=== PATIENT | female | born 1985 | race Caucasian/White ===

== ENCOUNTER 2019-01-05 17:35 | Outpatient (CLI) | payer OTHER, BC ==
--- NOTE | 2019-01-05 21:52 | Ultrasound Report ---
Reason: POSITIVE TEST Procedure Date: 01/05/2019 Accession Number: [id number] / [id number] Procedure: US - OB First Trimester CPT Code: Final Report FULL RESULT: EXAM: FIRST TRIMESTER OBSTETRIC ULTRASOUND (Less than 11 weeks) EXAM DATE: 01/05/2019 06:30 PM. CLINICAL HISTORY: Positive test. LMP: 10/28/2018, EGA 10 weeks 0 days, CLAIRE 08/03/2019. COMPARISONS: None. TECHNIQUE: Transabdominal and transvaginal ultrasound examination with static image documentation. ASSESSMENT: Gestational Sac: Single intrauterine. Mean gestational sac diameter: 2.3 mm = 7 weeks 2 days. Embryo: CRL (crown-rump length) 6 mm = 6 weeks 3 days, CLAIRE 08/28/2019. Cardiac activity: None. No cardiac activity is seen. Yolk sac: Appears enlarged measuring 9 mm. Amniotic fluid: Not accurately assessed at this gestational age. Early placenta: Not visible at this gestational age. Other: No perigestational fluid collection demonstrated. MATERNAL STRUCTURES: Uterus: Anteverted. Posterior transmural uterine fibroid versus contraction measuring 3.4 x 3.1 x 3 cm. Cervix: Closed. Right Ovary/Adnexa: The ovary measures 2.3 x 1.2 x 2 cm, volume 2.9 cc. Unremarkable. Left Ovary/Adnexa: The ovary measures 3.6 x 2.1 x 2 cm, volume 7.9 cc. Unremarkable. Corpus luteum suspected in the left ovary measuring 1.6 x 1.5 x 2 cm. Blood flow is seen in the left ovary. Free Fluid: None. IMPRESSION: 1. Single intrauterine at EGA 6 weeks 3 days with CLAIRE 08/28/2019 based on crown-rump length, not concordant with dates. See above. No embryo cardiac activity is seen. Recommend a 1 week follow-up OB ultrasound to reevaluate. Yolk sac appears enlarged. 2. Posterior transmural uterine fibroid versus contraction. RADIA
== END 2019-01-05 17:36 | disposition home or self-care (01) ==
LOC: DI 17:35
PROVIDERS: ATTEND Nurse Practitioner Obstetrics & Gynecology
DX: Z32.01 Encounter for pregnancy test, result positive (principal)
CPT/HCPCS: 76801; 76817

== ENCOUNTER 2019-01-16 20:16 | Outpatient (CLI) | payer OTHER, BC ==
--- NOTE | 2019-01-16 23:05 | Ultrasound Report ---
Reason: UNCERTAIN VIABILITY OF Procedure Date: 01/16/2019 Accession Number: [id number] / [id number] Procedure: US - OB First Trimester CPT Code: Final Report FULL RESULT: EXAM: FIRST TRIMESTER OBSTETRIC ULTRASOUND (Less than 11 weeks) EXAM DATE: 01/16/2019 08:37 PM. CLINICAL HISTORY: Light bleeding. Concern for viability. LMP: 11/06/2018. COMPARISONS: OB FIRST TRIMESTER 01/05/2019 5:46 PM. TECHNIQUE: Transabdominal and transvaginal ultrasound examination with static image documentation. CLINICAL DATES: EGA 11 weeks 4 days with CLAIRE 08/03/2019 based on LMP. ASSESSMENT: Gestational Sac: Single intrauterine, irregular. Mean gestational sac diameter: 20 mm = 6 weeks 6 days. Embryo: CRL (crown-rump length) 4 mm = 6 weeks 1 day. Cardiac activity: None visualized. Yolk sac: 3 mm. Amniotic fluid: Not accurately assessed at this gestational age. Early placenta: Not visible at this gestational age. Other: No perigestational fluid collection demonstrated. MATERNAL STRUCTURES: Uterus: Anteverted. Unremarkable. Cervix: Closed. Right Ovary/Adnexa: The ovary measures 1.7 x 1.6 x 2.1 cm, volume 3.1 cc. Unremarkable. Left Ovary/Adnexa: The ovary measures 3.2 x 1.7 x 2.8 cm, volume 8.1 cc. Unremarkable. Free Fluid: None. Other: None. IMPRESSION: demise, with interval decrease in crown-rump length and no heartbeat. RADIA
== END 2019-01-16 20:17 | disposition home or self-care (01) ==
LOC: DI 20:16
PROVIDERS: ATTEND Nurse Practitioner Obstetrics & Gynecology
DX: O36.4XX0 Maternal care for intrauterine death, not applicable or unspecified (principal); Z3A.01 Less than 8 weeks gestation of pregnancy
CPT/HCPCS: 76801; 76817

== ENCOUNTER 2019-01-29 14:10 | Outpatient (CLI) | payer OTHER, BC ==
[2019-01-29 14:37] LABS: HGB - HEMOGLOBIN 13.7 g/dL (12.0-16.0); MEAN CORPUSCULAR HEMOGLOBIN 31.2 pg (27.0-31.0); MEAN CORPUSCULAR HGB CONC 34.2 g/dL (32.0-36.0); MEAN CORPUSCULAR VOLUME 91.3 fL (81.0-99.0); MEAN PLATELET VOLUME 9.3 fL (7.9-10.8); RED BLOOD COUNT 4.39 10^6/uL (4.20-5.40); RED CELL DISTRIBUTION WIDTH 12.1 % (12.0-15.0); WHITE BLOOD COUNT 8.4 x10^3/uL (4.8-10.8)
[2019-01-29 14:54] LABS: ALBUMIN 4.8 g/dL (3.2-5.5); ALBUMIN/GLOBULIN RATIO 1.4 (1.0-2.2); BILIRUBIN,TOTAL 0.9 mg/dL (0.2-1.0); CALCIUM 9.4 mg/dL (8.5-10.3); CREATININE 0.7 mg/dL (0.4-1.0); TOTAL PROTEIN 8.2 g/dL (6.7-8.2)
== END 2019-01-29 14:11 | disposition home or self-care (01) ==
LOC: LAB 14:10
PROVIDERS: ATTEND Obstetrics & Gynecology
DX: Z01.818 Encounter for other preprocedural examination (principal); O03.9 Complete or unspecified spontaneous abortion without complication
CPT/HCPCS: 36415; 80053; 84702; 85027; 86900; 86901

== ENCOUNTER 2019-02-05 13:29 | Outpatient (CLI) | payer OTHER, BC | END 2019-02-05 23:59 | disposition home or self-care (01) | LOC: LAB.N 13:29 | PROVIDERS: ATTEND Obstetrics & Gynecology | DX: O03.9 Complete or unspecified spontaneous abortion without complication (principal) | CPT/HCPCS: 36415; 84702 ==

== ENCOUNTER 2019-02-19 11:05 | Outpatient (CLI) | payer OTHER, BC | END 2019-02-19 23:59 | disposition home or self-care (01) | LOC: LAB.N 11:05 | PROVIDERS: ATTEND Obstetrics & Gynecology | DX: O03.9 Complete or unspecified spontaneous abortion without complication (principal) | CPT/HCPCS: 36415; 84702 ==

== ENCOUNTER 2019-02-23 11:51 | Outpatient (CLI) | payer OTHER, BC | END 2019-02-23 23:59 | disposition home or self-care (01) | LOC: LAB.N 11:51 | PROVIDERS: ATTEND Obstetrics & Gynecology | DX: O03.9 Complete or unspecified spontaneous abortion without complication (principal) | CPT/HCPCS: 36415; 84702 ==

== ENCOUNTER 2019-02-26 19:22 | Outpatient (CLI) | payer OTHER, BC ==
--- NOTE | 2019-02-27 09:58 | Ultrasound Report ---
Reason: SAB Procedure Date: 02/26/2019 Accession Number: [id number] / [id number] Procedure: US - Pelvic w/Transvaginal CPT Code: Final Report FULL RESULT: EXAM: PELVIC ULTRASOUND EXAM DATE: 02/26/2019 08:20 PM. CLINICAL HISTORY: SAB. COMPARISON: OB FIRST TRIMESTER 01/16/2019 8:37 PM. TECHNIQUE: Realtime transabdominal pelvic scan performed to identify the uterus and adnexa and as an overview of other pelvic structures, followed by transvaginal scan to provide greater detail of the uterus and adnexa, with static image documentation. FINDINGS: Uterus: 9 x 3.6 x 4.4 cm, volume 76.8 cc. Anteverted position. Normal overall size and echotexture. Masses: None. Endometrium: 7 mm. No abnormal focal blood flow. No focal endometrial mass or thickening. Cervix: No mass. Incidental nabothian cysts noted. Fluid noted in the endometrial canal. Right Ovary: 2.4 x 2.6 x 2.3 cm, volume 7.7 cc. Normal echotexture and blood flow. Left Ovary: 2.3 x 3.6 x 2.1 cm, volume 9.3 cc. Normal echotexture and blood flow. Anechoic 1.5 x 1.4 x 1.3 cm cyst. No wall irregularities, mural nodules or thickened septations. Free Fluid: None. Other: None. IMPRESSION: 1. 1.5 cm anechoic simple left ovarian cyst. No concerning features. Otherwise, both ovaries and adnexa are normal. 2. No uterine fibroids. 3. No focal endometrial mass or polyp. No sonographic findings concerning for retained products of conception. 4. No cervical mass. Small amount of fluid noted in the cervix. RADIA
== END 2019-02-26 19:23 | disposition home or self-care (01) ==
LOC: DI 19:22
PROVIDERS: ATTEND Obstetrics & Gynecology
DX: O03.9 Complete or unspecified spontaneous abortion without complication (principal); N83.292 Other ovarian cyst, left side
CPT/HCPCS: 76830; 76856

== ENCOUNTER 2019-03-02 08:00 | Outpatient (CLI) | payer OTHER, BC | END 2019-03-02 23:59 | disposition home or self-care (01) | LOC: LAB.N 08:00 | PROVIDERS: ATTEND Obstetrics & Gynecology | DX: O03.9 Complete or unspecified spontaneous abortion without complication (principal) | CPT/HCPCS: 36415; 84702 ==

== ENCOUNTER 2019-09-24 12:54 | Outpatient (CLI) | payer OTHER, BC | END 2019-09-24 23:59 | disposition home or self-care (01) | LOC: LAB.WCP 12:54 | PROVIDERS: ATTEND Obstetrics & Gynecology | DX: O36.80X0 Pregnancy with inconclusive fetal viability, not applicable or unspecified (principal); Z32.01 Encounter for pregnancy test, result positive; Z3A.00 Weeks of gestation of pregnancy not specified | CPT/HCPCS: 36415; 84702 ==

== ENCOUNTER 2019-10-02 20:21 | Outpatient (CLI) | payer OTHER, BC ==
--- NOTE | 2019-10-03 14:02 | Ultrasound Report ---
PROCEDURE: OB First Trimester INDICATIONS: TEST POSITIVE, UNCERTAIN VIABILITY OUTSIDE/PRIOR DATING DATA: Last menstrual period (LMP): 08/16/2019. LMP-based estimated date of delivery (CLIARE): 05/14/2020. First dating scan (date and location): 10/02/2019. Estimated date of delivery (CLAIRE) from first dating scan: 05/12/2020. TECHNIQUE: Real-time scanning was performed of the fetus and maternal pelvic organs, with image documentation. COMPARISON: None from this FINDINGS: Embryo: There is an intrauterine gestational sac seen, with a pole present, which measures 1.6 cm, which corresponds to an estimated gestational age of 8 weeks 0 days. cardiac activity is s een, with a measured heart rate of 171 bpm. No significant perigestational/subchorionic hemorrhage can be seen. A normal-appearing yolk sac can be seen. Measurement variability in dating: +/- 4 weeks by LMP, +/- 7 days by mean sac diameter (use before 6 weeks gestation if crown-rump length not able to be measured), +/- 5 days by crown-rump length (6-12 weeks gestation). Maternal organs: Ovaries are unremarkable. Limited images through the kidneys demonstrate no hydron ephrosis. IMPRESSION: Single live intrauterine . No significant discrepancy is found between the estimated gestational age based upon these images and the estimated gestational age based upon the given date of the last menstrual period. Reviewed by: Shemar Huber MD on 10/03/2019 1:00 PM BAL Approved by: Shemar Huber MD on 10/03/2019 1:00 PM BAL Station ID: [id number]
--- NOTE | 2019-10-03 14:23 | Ultrasound Report ---
PROCEDURE: OB Transvaginal INDICATIONS: TEST POSITIVE, UNCERTAIN VIABILITY OUTSIDE/PRIOR DATING DATA: Last menstrual period (LMP): 08/16/2019. LMP-based estimated date of delivery (CLAIRE): 05/14/2020. First dating scan (da te and location): 10/02/2019. Estimated date of delivery (CLAIRE) from first dating scan: 05/12/2020. CHRIS HNIQUE: Real-time scanning was performed of the fetus and maternal pelvic organs, with image document ation. COMPARISON: None from this FINDINGS: Embryo: There is an intrauterine gestational sac seen, with a pole present, which measures 1.6 cm, which corresponds to an estimated gestat ional age of 8 weeks 0 days. cardiac activity is seen, with a measured heart rate of 171 bpm. N o significant perigestational/subchorionic hemorrhage can be seen. A normal-appearing yolk sac can be seen. Measurement variability in dating: +/- 4 weeks by LMP, +/- 7 days by mean sac diameter (use b efore 6 weeks gestation if crown-rump length not able to be measured), +/- 5 days by crown-rump lengt h (6-12 weeks gestation). Maternal organs: Ovaries are unremarkable. Limited images through the kidn eys demonstrate no hydronephrosis. IMPRESSION: Single live intrauterine . No significan t discrepancy is found between the estimated gestational age based upon these images and the estimate d gestational age based upon the given date of the last menstrual period. Reviewed by: Shemar Huber MD on 10/03/2019 1:22 PM BAL Approved by: Shemar Huber MD on 10/03/2019 1:22 PM BAL Station ID: [id number]
== END 2019-10-02 20:22 | disposition home or self-care (01) ==
LOC: DI 20:21
PROVIDERS: ATTEND Obstetrics & Gynecology
DX: Z32.01 Encounter for pregnancy test, result positive (principal); O36.80X0 Pregnancy with inconclusive fetal viability, not applicable or unspecified; Z3A.08 8 weeks gestation of pregnancy
CPT/HCPCS: 76801; 76817

== ENCOUNTER 2019-10-06 17:09 | Outpatient (CLI) | payer OTHER, BC ==
[2019-10-06 15:34] LABS: BILIRUBIN,URINE NEGATIVE (NEGATIVE); GLUCOSE, URINE (UA) NEGATIVE (NEGATIVE); KETONES,URINE (UA) NEGATIVE (NEGATIVE); LEUKOCYTE ESTERASE, URINE NEGATIVE (NEGATIVE); NITRITE,URINE NEGATIVE (NEGATIVE); OCCULT BLOOD,URINE NEGATIVE (NEGATIVE); PROTEIN,URINE NEGATIVE (NEGATIVE); UROBILINOGEN,URINE 0.2 (NORMAL) E.U./dL (NORMAL)
[2019-10-06 15:35] LABS: CLARITY,URINE CLEAR (CLEAR)
[2019-10-06 17:32] LABS: BASOPHILS # (AUTO) 0.1 10^3/uL (0.0-0.1); BASOPHILS % (AUTO) 0.5 %; EOSINOPHILS # (AUTO) 0.1 10^3/uL (0.0-0.7); HGB - HEMOGLOBIN 13.3 g/dL (12.0-16.0); LYMPHOCYTES # (AUTO) 2.2 10^3/uL (1.5-3.5); LYMPHOCYTES % (AUTO) 23.6 %; MEAN CORPUSCULAR HEMOGLOBIN 31.8 pg (27.0-31.0); MEAN CORPUSCULAR HGB CONC 34.4 g/dL (32.0-36.0); MEAN CORPUSCULAR VOLUME 92.6 fL (81.0-99.0); MEAN PLATELET VOLUME 9.5 fL (7.9-10.8); MONOCYTES # (AUTO) 0.6 10^3/uL (0.0-1.0); MONOCYTES % (AUTO) 6.3 %; NEUTROPHILS # (AUTO) 6.3 10^3/uL (1.5-6.6); NEUTROPHILS % (AUTO) 67.9 %; PLT - PLATELET COUNT 221 10^3/uL (130-450); RED BLOOD COUNT 4.18 10^6/uL (4.20-5.40); RED CELL DISTRIBUTION WIDTH 12.6 % (12.0-15.0); WHITE BLOOD COUNT 9.2 x10^3/uL (4.8-10.8)
[2019-10-06 19:01] LABS: TRICHOMONAS VAGINALIS DNA NEGATIVE (NEGATIVE)
[2019-10-07 12:18] LABS: HIV AG/AB 4TH GEN NON-REACTIVE (NON-REACTIVE)
[2019-10-07 12:49] LABS: HEPATITIS B SURFACE ANTIGEN NON-REACTIVE (NON-REACTIVE)
== END 2019-10-06 17:10 | disposition home or self-care (01) ==
LOC: LAB 17:09
PROVIDERS: ATTEND Obstetrics & Gynecology
DX: Z36.89 Encounter for other specified antenatal screening (principal)
CPT/HCPCS: 36415; 81001; 81003; 81599; 85025; 86592; 86762; 86850; 86900; 86901; 87086; 87340; 87389; 87491; 87522; 87591; 87661

== ENCOUNTER 2019-10-21 07:12 | Outpatient (CLI) | payer SELFPAY | END 2019-10-21 07:13 | disposition home or self-care (01) | LOC: LAB 07:12 | PROVIDERS: ATTEND Obstetrics & Gynecology | DX: Z01.89 Encounter for other specified special examinations (principal) | CPT/HCPCS: 36415 ==

== ENCOUNTER 2019-11-26 18:20 | Outpatient (CLI) | payer OTHER, BC | END 2019-11-26 18:21 | disposition home or self-care (01) | LOC: LAB 18:20 | PROVIDERS: ATTEND Obstetrics & Gynecology | DX: Z34.80 Encounter for supervision of other normal pregnancy, unspecified trimester (principal) | CPT/HCPCS: 36415; 81599 ==

== ENCOUNTER 2019-12-28 15:13 | Outpatient (CLI) | payer OTHER, BC ==
--- NOTE | 2019-12-28 17:36 | Ultrasound Report ---
PROCEDURE: OB Detailed Eval INDICATIONS: SUPERVISION OF NORMAL MULTIGRAVIDA PREG OUTSIDE/PRIOR DATING DATA: Last menstrual period (LMP): 08/08/2019. LMP-based estimated date of delivery (CLAIRE): 05/14/2020. First dating scan (date and location): 10/02/2019. Estimated date of delivery (CLAIRE) from first dating scan: 05/12/2020. TECHNIQUE: Real-time scanning was performed of the fetus, with image documentation and biometric measurements. Endovaginal scanning: Not needed COMPARISON: 10/02/2019 ultrasound FINDINGS: General: A single living intrauterine gestation is present. Presentation: Variable at this time Placenta: Placental position is anterior, without previa. Amniotic fluid index: 18.8 cm, 86 percentile for gestational age. heart rate: 157 beats per minute. Maternal cervical canal: 4.9 cm long; normal length is 2.5 cm or more. biometrics: Biparietal diameter: 5.0 cm, 21 weeks 2 days Head circumference: 19.4 cm, 21 weeks 4 days Abdominal circumference: 15.8 cm, 20 weeks 6 days Femur length: 3.3 cm, 20 weeks 3 days Estimated gestational age from initial scan: 20 weeks 4 days. Composite gestational age from present scan: 20 weeks 6 days Estimated weight and percentile: 379 g, 59th percentile Measurement variability in biometric dating: +/- 10 days from 12-20 weeks gestation, +/- 2 weeks from 20-30 weeks gestation, +/- 3 weeks at 30 weeks gestation or later. Anatomic survey: Neuro: Ventricles are normal at less than 10 mm. Cisterna magna is normal at 3-11 mm. Cerebellum i s normal in size and morphology. Nuchal skin fold: Normal at less than 6 mm between 14 and 20 weeks gestational age. Face: Nose and lips, facial profile are normal. Spine: No evidence for spina bifida. Heart: 4-chambered heart is present, with normal ventricular outflow tracts. Diaphragm: Diaphragm is intact. Stomach: Left-sided stomach is present. Kidneys: No hydronephrosis. Normal is less than 5 mm in 2nd trimester, less than 7 mm in 3rd trimester. Cord: 3 vessel cord has orthotopic insertion. Bladder: Normal in size. Extremities: All 4 extremities are visualized. IMPRESSION: Appropriate interval growth, no anomaly found, the delivery date is projected to be centered on 05/12/2020. Reviewed by: Boris Croft MD on 12/28/2019 5:34 PM PST Approved by: Boris Croft MD on 12/28/2019 5:34 PM PST Station ID: [id number]
== END 2019-12-28 15:14 | disposition home or self-care (01) ==
LOC: DI 15:13
PROVIDERS: ATTEND Obstetrics & Gynecology
DX: Z34.92 Encounter for supervision of normal pregnancy, unspecified, second trimester (principal)
CPT/HCPCS: 76811

== ENCOUNTER 2020-02-17 08:48 | Outpatient (CLI) | payer OTHER, BC | END 2020-02-17 08:49 | disposition home or self-care (01) | LOC: LAB 08:48 | PROVIDERS: ATTEND Obstetrics & Gynecology | DX: Z36.89 Encounter for other specified antenatal screening (principal) | CPT/HCPCS: 36415; 82950 ==

== ENCOUNTER 2020-02-22 11:58 | Outpatient (CLI) | payer OTHER, BC ==
[2020-02-22 12:24] LABS: HGB - HEMOGLOBIN 12.5 g/dL (12.0-16.0); MEAN CORPUSCULAR HEMOGLOBIN 31.9 pg (27.0-31.0); MEAN CORPUSCULAR VOLUME 93.9 fL (81.0-99.0); MEAN PLATELET VOLUME 9.2 fL (7.9-10.8); RED BLOOD COUNT 3.92 10^6/uL (4.20-5.40); RED CELL DISTRIBUTION WIDTH 13.5 % (12.0-15.0)
== END 2020-02-22 11:59 | disposition home or self-care (01) ==
LOC: LAB 11:58
PROVIDERS: ATTEND Obstetrics & Gynecology
DX: Z36.89 Encounter for other specified antenatal screening (principal)
CPT/HCPCS: 85027

== ENCOUNTER 2020-04-04 12:11 | Outpatient (CLI) | payer OTHER, BC ==
[2020-04-04 14:07] VITALS: BP 136/79
[2020-04-04] MEDS ORDERED: NIFEdipine ER 30 MG TABLET PO ONE (14:26)
[2020-04-04 14:44] LABS: BILIRUBIN,URINE NEGATIVE (NEGATIVE); GLUCOSE, URINE (UA) NEGATIVE (NEGATIVE); KETONES,URINE (UA) NEGATIVE (NEGATIVE); LEUKOCYTE ESTERASE, URINE NEGATIVE (NEGATIVE); NITRITE,URINE NEGATIVE (NEGATIVE); OCCULT BLOOD,URINE MODERATE (NEGATIVE); PROTEIN,URINE NEGATIVE (NEGATIVE); UROBILINOGEN,URINE 0.2 (NORMAL) E.U./dL (NORMAL)
[2020-04-04 14:45] LABS: CLARITY,URINE CLEAR (CLEAR)
[2020-04-04 15:00] LABS: BACTERIA,URINE Rare /HPF (None Seen); SQUAMOUS EPITHELIAL CELL,UR NONE SEEN (<= Few)
[2020-04-04] MEDS ORDERED: NIFEdipine 10 MG CAPSULE PO ONE (15:00)
--- NOTE | 2020-04-04 16:38 | Ultrasound Report ---
PROCEDURE: OB Transvaginal INDICATIONS: contractions OUTSIDE/PRIOR DATING DATA: Last menstrual period (LMP): 08/08/2019. LMP-based estimated date of delivery (CLAIRE): 05/14/2020. First dating scan (date and location): 10/02/2019. Estimated date of delivery (CLAIRE) from first dating scan: 05/12/2020. TECHNIQUE: Real-time scanning was performed of the fetus, with image documentation. Endovaginal scanning: Not performed COMPARISON: 10/02/2019, 12/28/2019. FINDINGS: A single living intrauterine gestation is present. Presentation: Vertex Placenta: Placental position is anterior, without previa. Amniotic fluid index: 10.5 cm, 17th percentile for gestational age. Largest pocket measures 5.2 cm heart rate: 147 beats per minutes. Maternal cervical canal: 3.4 cm long; normal length is 2.5 cm or more. Estimated gestational age from initial scan: 34 weeks 4 days. IMPRESSION: Single living intrauterine fetus in vertex presentation. Normal LINDA Cervical length measures 3.4 cm Reviewed by: Dharmesh Galvan MD on 04/04/2020 4:37 PM PST Approved by: Dharmesh Galvan MD on 04/04/2020 4:37 PM PST Station ID: [id number]
--- NOTE | 2020-04-04 17:00 | PROVIDER PROGRESS NOTE ---
Subjective - Subjective Subjective: CC: sent from clinic for HR 180s HPI: here for routine visit, FHT in 180s, sent over for NST. While on NST, regular UCs were seen. Pt having some UC, mild. No VB, no LOF. Had UC the day after she worked once, wonders if it safe to work anymore. No vaginal discharge, itching, or odor. O: AVSS Alert, smiling, NAD SVE by RN /-2/mid/soft Baseline: BPM 140 Variability: Moderate Accelerations: Present Decelerations: Absent Trends in FHR over time: Baseline was between 135 and 150BPM [place] contractions in 10 minutes: 2-3, then absent Impression: reactive Category 1 NST NST start time 12:24 04/04/20 NST stop time 12:50 04/04/20 Wet mount: + clue cells <20%. UA normal, FFN +. A/P: 34yo at 34w2d with tachycardia -- tachycardia deemed secondary to healthy accelerations. Normal baseline and Mod LTV --Incidental finding of premature/ onset of contractions. Not symptomatic. Wet mount with clue cells <20%, pt without sx so not treated. SVE 1cm common in a multip, CL >3cm. routine PTL precautions and routine follow up in clinic planned. Objective - Vital Signs/Intake & Output Vital Signs: Vital Signs x48h Pulse Resp BP Pulse Ox 04/04/20 14:04 105 H 20 136/79 H 100 - Lab Results Other Labs: Lab Results x24hrs 04/04/20 04/04/20 Range/Units 13:00 13:00 Urine Color YELLOW Urine Clarity CLEAR (CLEAR) Urine pH 7.0 (5.0-7.5) PH Ur Specific [place] 1.015 (1.002-1.030) Urine Protein NEGATIVE (NEGATIVE) mg/dL Urine Glucose (UA) NEGATIVE (NEGATIVE) mg/dL Urine Ketones NEGATIVE (NEGATIVE) mg/dL Urine Occult Blood MODERATE H (NEGATIVE) Urine Nitrite NEGATIVE (NEGATIVE) Urine Bilirubin NEGATIVE (NEGATIVE) Urine Urobilinogen 0.2 (NORMAL) (NORMAL) E.U./dL Ur Leukocyte Esterase NEGATIVE (NEGATIVE) Urine RBC 6-10 H (0-5) /HPF Urine WBC 4-5 (0-5) /HPF Ur Squamous Epith Cells NONE SEEN (<= Few) Urine Bacteria Rare (None Seen) /HPF Urine Culture Comments NOT INDICATED Fibronectin POSITIVE (NEGATIVE)
[2020-04-04 21:21] LABS: TRICHOMONAS VAGINALIS DNA NEGATIVE (NEGATIVE)
== END 2020-04-04 17:00 | disposition home or self-care (01) ==
LOC: WFO 12:11 → FBP 12:14 → WFO 17:00
PROVIDERS: ATTEND Obstetrics & Gynecology
DX: O36.8330 Maternal care for abnormalities of the fetal heart rate or rhythm, third trimester, not applicable or unspecified (principal); Z3A.34 34 weeks gestation of pregnancy
CPT/HCPCS: 59025; 76815; 76817; 81001; 82731; 87081; 87210; 87491; 87591; 87661; 99214; A9270; 87086

== ENCOUNTER 2020-04-10 23:58 | Outpatient (CLI) | payer OTHER, BC ==
[2020-04-11 00:14] VITALS: BP 119/68
--- NOTE | 2020-04-11 01:21 | PROVIDER PROGRESS NOTE ---
- HPI Chief Complaint: Other (Patient is a 34 yo at 35+2 wga here for labor check. Had been working on her feet all adriano for [address] home, felt pressure in the vagina. Feels like something may be falling out. Has been having intermittent contractions and had a positive FFN a week ago. 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 Nl BSUMA. No drainage per vagina SVE closed/40%/high/posterior/firm EFM 145 mod ruthy 15 x15 accels no decels TOCO: intermittent and irregular - Procedures NST Procedure: NST Procedure Start Time 12:24 Stop Time 12:50 Service Date of procedure: 04/11/20 Procedure Details: Cat I tracing See EFM details above Findings: Reassuring SVE Cat I tracing - Plan Plan: 34 yo at 35+2 wga here for labor assessment False labor -Has element of bladder prolapse. Would benefit from PT -Warning signs reviewed -Reassuring exam -Cat I tracing FU with routine PNC
== END 2020-04-11 01:20 | disposition home or self-care (01) ==
LOC: WFO 23:58 → FBP 04-11 00:01 → WFO 04-11 01:20
PROVIDERS: ATTEND Obstetrics & Gynecology
DX: O47.03 False labor before 37 completed weeks of gestation, third trimester (principal); O99.891 Other specified diseases and conditions complicating pregnancy; O34.83 Maternal care for other abnormalities of pelvic organs, third trimester; N81.10 Cystocele, unspecified; Z3A.35 35 weeks gestation of pregnancy
CPT/HCPCS: 59025; 99212

== ENCOUNTER 2020-04-18 08:00 | Outpatient (CLI) | payer OTHER, BC | END 2020-04-18 23:59 | disposition home or self-care (01) | LOC: LAB.R 08:00 | PROVIDERS: ATTEND Obstetrics & Gynecology | DX: Z36.85 Encounter for antenatal screening for Streptococcus B (principal) | CPT/HCPCS: 87797 ==

== ENCOUNTER 2020-05-05 10:09 | Outpatient (CLI) | payer OTHER, BC ==
[2020-05-05 10:33] LABS: BASOPHILS % (AUTO) 0.5 %; EOSINOPHILS % (AUTO) 0.3 %; HCT - HEMATOCRIT 40.7 % (37.0-47.0); HGB - HEMOGLOBIN 13.8 g/dL (12.0-16.0); LYMPHOCYTES # (AUTO) 1.3 10^3/uL (1.5-3.5); LYMPHOCYTES % (AUTO) 20.3 %; MEAN CORPUSCULAR HEMOGLOBIN 31.9 pg (27.0-31.0); MEAN CORPUSCULAR HGB CONC 33.9 g/dL (32.0-36.0); MEAN CORPUSCULAR VOLUME 94.2 fL (81.0-99.0); MEAN PLATELET VOLUME 9.6 fL (7.9-10.8); MONOCYTES # (AUTO) 0.4 10^3/uL (0.0-1.0); MONOCYTES % (AUTO) 5.8 %; NEUTROPHILS # (AUTO) 4.6 10^3/uL (1.5-6.6); NEUTROPHILS % (AUTO) 72.2 %; PLT - PLATELET COUNT 178 10^3/uL (130-450); RED BLOOD COUNT 4.32 10^6/uL (4.20-5.40); RED CELL DISTRIBUTION WIDTH 14.9 % (12.0-15.0); WHITE BLOOD COUNT 6.4 x10^3/uL (4.8-10.8)
== END 2020-05-05 10:10 | disposition home or self-care (01) ==
LOC: LAB 10:09
PROVIDERS: ATTEND Obstetrics & Gynecology
DX: Z01.812 Encounter for preprocedural laboratory examination (principal); O34.211 Maternal care for low transverse scar from previous cesarean delivery; Z20.822 Contact with and (suspected) exposure to COVID-19; Z3A.39 39 weeks gestation of pregnancy
CPT/HCPCS: 36415; 85025

== ENCOUNTER 2020-05-06 19:53 | Inpatient (IN) | payer OTHER, BC ==
[2020-05-06] MEDS ORDERED: miSOPROStoL 200 MCG TABLET BC PRN (20:18)
[2020-05-06] MEDS ORDERED: TRANEXAMIC ACID IN NACL 1,000 MG/100 ML BAG IV PRN (20:18)
[2020-05-06] MEDS ORDERED: SODIUM CHLORIDE FLUSH 0.9% 10 ML SYRINGE IVP PRN ×2 (20:18→23:53)
[2020-05-06] MEDS ORDERED: LIDOCAINE-MPF 1% 30 ML VIAL ID PRN (20:18)
[2020-05-06] MEDS ORDERED: OXYTOCIN/SODIUM CHLORIDE 500 ML IV PRN ×2 (20:18→23:53)
[2020-05-06] MEDS ORDERED: METHYLERGONOVINE 0.2 MG/ML VIAL IM PRN (20:18)
[2020-05-06] MEDS ORDERED: CARBOPROST TROMETHAMINE 250 MCG/ML AMP IM PRN (20:18)
[2020-05-06] MEDS ORDERED: OXYTOCIN 10 UNIT/ML VIAL IM PRN (20:18)
--- NOTE | 2020-05-06 20:29 | HISTORY & PHYSICAL EXAMINATION ---
Admit History - Visit Reason Visit Reason: Membranes rupture - : 4 Parity: 1 Risk/History: positive: Previous Complications This : positive: None Smoking Status: Never smoker - Mother's Labs Mother's Blood Type: positive: A GBS: positive: Group B Step Negative Rubella Status: positive: Immune - Other Maternal History Other Maternal History: Patient is a 35 yo at 38+6 wga with hx of prior who presents with ruptured membranes. Reports passing large gush of fluid at home. Continues to pass fluid. No VB. Endorses FM. Scheduled for and BTL on Saturday am. hx: Dating: LMP: 08/16/2019 gives CLAIRE of 05/14/2020. Ultrasound 10/02/2019, 8 weeks 0 days, gives CLAIRE of 05/12/2020; consistent wtih dates. A pos/Rub imm Genetic testin XY, AFP wnl Patient declines carrier testing. FAS anterior, 59%ile, 3VC, FAS wnl, normal CL Tdap complete Influenza complete Glucola 138 CBC 36.8 but will start low dose iron given high EBL last delivery GBS at 36 weeks.- negative HSV: Denies. Breast pump Rx.: Mode of delivery: Patient desires repeat . Declines BTL Scheduled 05/09/20 at 7:30 -We will review prior records with regard to indication for prior and possibly of hemorrhage. 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 test: 11/24/2018 Patient Portal: E102 Meds/Allgy - Home Medications Home Medications: Ambulatory Orders Medication Instructions Recorded Confirmed Ibuprofen [Motrin] 800 mg PO Q6HR PRN #30 tablet 09/25/15 oxyCODONE [Roxicodone] 5 mg PO Q6H PRN #30 tablet 09/25/15 - Allergies Allergies/Adverse Reactions: Allergies Allergy/AdvReac Type Severity Reaction Status Date / Time amoxicillin Allergy Severe Hives Verified 09/22/15 07:12 Review of Systems - Other Findings Other Findings: As per HPI, otherwise remaining systems are negative. Physical - Abdominal Exam Vital Signs: 119/68 105 16 Contraction Frequency (min/apart): irritable - Monitoring Heart Rate Baseline: 145 mod ruthy 15x15 accels no decels Strip Review: positive: Category I - Presentation Presentation: positive: Vertex - Vaginal Exam Membranes: positive: Membranes ruptured Dilation (in cm): 3 Effacement (%): 80 Station: positive: -2 Cervical Position: positive: Posterior - Speculum Exam Findings: positive: Gross leak - Other Notes Labor Progress Note/Additional Text: GEN: NAD RESP: Nl Effort CV: mild tachycardia ABD: gravid S&NT/ND EXT: WWP PSYCH: appropriate affect NEURO: A&O, nl gait and coordination Plan for Labor - Plan For Labor Plan for Labor: 35 yo at 38+6 wga with hx of prior CS and SROM Gross rupture Recent po intake. -Conferred with Anesthesia. Opting to proceed with CS at present. Proceed with Declines BTL Ancef OCTOR Bicitra as per Anesthesia recommendations Crossed for 2 units PRBC Reviewed risks/benefits/alternatives to Risks include, but are not limited to, bleeding, infection, damage to neatby tissue and organs. On average, EBL of up to 1 liter is considered within normal limits for CS. Risks of blood transfusion include infection Risk of HIV 1/2million nationwide Risk of Hepatitis 1/1 million Risks of transfusion reaction Infection risk moderate given clean/contaminated nature of procedure and IV antibiotics will be given. Damage to nearby tissue and organs including bladder, bowel, ureters, blood vessels, nerves, and fetus Damage may be noted intra-op and may be delayed until after the procedure is complete Reviewed management of complications and efforts to avoid such outcomes but reviewed that they may occur despite our best efforts Written informed consent obtained at prior OB visit
[2020-05-06] MEDS: LACTATED RINGERS 1,000 ML IV SCH (21:05)
[2020-05-06] MEDS ORDERED: CITRIC ACID/SODIUM CITRATE 15 ML UDC PO ONE (21:06)
[2020-05-06] MEDS ORDERED: PHENYLEPHRINE 10 MG/ML VIAL ONE (21:44)
[2020-05-06] MEDS ORDERED: SODIUM CHLORIDE 0.9% 10 ML ONE (21:44)
[2020-05-06] MEDS ORDERED: ePHEDrine 50 MG/ML VIAL IVP ONE (21:44)
--- NOTE | 2020-05-06 21:45 | ANESTHESIA ---
Pre-Anesthesia VS, & Labs - Diagnosis ruptured membranes, contractions, previous c/s - Procedure repeat c/s Vital Signs: Temp Pulse Resp BP Pulse Ox 37.1 C 105 H 20 119/72 98 05/06/20 20:49 05/06/20 20:49 05/06/20 20:49 05/06/20 20:49 05/06/20 20:49 Height: 5 ft 8 in - NPO Last Fluid Intake: 1829 Last Food Intake: 1829 - Is Patient ?: Yes - Lab Results Lab results reviewed: Yes Home Medications and Allergies Active Medications Carboprost Tromethamine (Carboprost Tromethamine 250 Mcg/Ml Amp) 250 mcg IM Q15M PRN PRN Reason: Step 4: Hemorrhage protocol Stop: 05/11/20 20:19 Lactated Ringer's (Lr) 1,000 mls @ 150 mls/hr IV .Q6H40M KEMI Last Admin: 05/06/20 21:05 Dose: 150 mls/hr Documented by: Oxytocin/Sodium Chloride (Pitocin/Sodium Chloride) 500 mls @ 999 mls/hr IV PRN PRN; Protocol PRN Reason: POST- HEMORR PREVENTION Stop: 05/11/20 20:19 Tranexamic Acid (Tranexamic 1,000 Mg/100ml-Nacl) 1,000 mg in 100 mls @ 600 mls/hr IV .ONCE PRN PRN Reason: EBL >1200mL and within 3hr Stop: 05/11/20 20:19 Lidocaine HCl (Lidocaine-Mpf 1% 30 Ml Vial) 30 ml ID .ONCE PRN PRN Reason: PERINEAL REPAIR Stop: 05/11/20 20:19 Methylergonovine Maleate (Methylergonovine 0.2 Mg/Ml Vial) 0.2 mg IM .ONCE PRN PRN Reason: Step 2: Hemorrhage protocol Stop: 05/11/20 20:19 Misoprostol (Misoprostol 200 Mcg Tablet) 800 mcg BC .ONCE PRN PRN Reason: Step 3: Hemorrhage protocol Stop: 05/11/20 20:19 Oxytocin (Oxytocin 10 Unit/Ml Vial) 10 unit IM .ONCE PRN PRN Reason: Step one: If no IV access Stop: 05/11/20 20:19 Sodium Chloride (Sodium Chloride Flush 0.9% 10 Ml Syringe) 10 ml IVP PRN PRN PRN Reason: NEEDED PER PROVIDER ORDERS Sodium Chloride (Sodium Chloride Flush 0.9% 10 Ml Syringe) 10 ml IVP 0100,0900,1700 KEMI Allergies/Adverse Reactions: Allergies Allergy/AdvReac Type Severity Reaction Status Date / Time amoxicillin Allergy Severe Hives Verified 09/22/15 07:12 Anes History & Medical History - Anesthetic History Anesthesia Complications: reports: No previous complications Family history of Anesthesia Complications: Denies Family history of Malignant Hyperthermia: Denies - Medical History Cardiovascular: reports: None Pulmonary: reports: None Gastrointestinal: reports: None Urinary: reports: None Musculoskeletal: reports: None Endocrine/Autoimmune: reports: None Blood Disorders: reports: None Skin: reports: None Smoking Status: Never smoker - Surgical History Other Past Surgical History: previous C/s - Obstetrical History : 4 Parity: 1 Events: positive: Previous Complications: positive: None Exam General: Alert, Oriented x3, Cooperative Dental: WNL Mouth Openin Fingerbreadth Neck Mobility: Normal Mallampati classification: II Thyromental Distance: 4-6 cm Respiratory: Lungs clear, Normal breath sounds, No respiratory distress Cardiovascular: Regular rate Neurological: Normal speech Mental/Cognitive Status: Alert/Oriented X3, Normal for patient Cognitive Status: Within normal limits Plan Anesthesia Type: Spinal Consent for Procedure(s) Verified and Reviewed: Yes Code Status: Attempt Resuscitation ASA classification: 2-Mild systemic disease Is this case an emergency?: Yes
[2020-05-06] MEDS ORDERED: OXYTOCIN 10 UNIT/ML VIAL ONE (21:46)
[2020-05-06] MEDS ORDERED: MORPHINE PF 5 MG/10 ML VIAL ONE (21:50)
[2020-05-06] MEDS ORDERED: fentaNYL 100 MCG/2 ML VIAL ONE (21:50)
[2020-05-06] MEDS ORDERED: LIDOCAINE 2%-EPI 1:100000 20 ML MDV ONE ×2 (21:51)
[2020-05-06] MEDS ORDERED: ONDANSETRON 4 MG/2 ML VIAL ONE (21:52)
[2020-05-06] MEDS ORDERED: DEXAMETHASONE 4 MG/ML VIAL ONE (21:52)
[2020-05-06] MEDS ORDERED: MORPHINE PF 5 MG/10 ML VIAL IT ONE (21:53)
[2020-05-06] MEDS ORDERED: fentaNYL 100 MCG/2 ML VIAL IT ONE (21:53)
[2020-05-06] MEDS ORDERED: ceFAZolin 1 GM VIAL ONE (22:18)
[2020-05-06] MEDS ORDERED: ePHEDrine 50 MG/ML VIAL IVP PRN ×2 (22:37→22:38)
[2020-05-06] MEDS ORDERED: diphenhydrAMINE INJ 50 MG/ML VIAL IVP PRN ×2 (22:37→22:38)
[2020-05-06] MEDS ORDERED: ONDANSETRON 4 MG/2 ML VIAL IVP PRN ×2 (22:37→22:38)
[2020-05-06] MEDS ORDERED: METOCLOPRAMIDE 10 MG/2 ML VIAL IVP PRN ×2 (22:37→22:38)
[2020-05-06] MEDS ORDERED: NALBUPHINE 10 MG/ML AMP IVP PRN ×2 (22:37→22:38)
[2020-05-06] MEDS ORDERED: NALOXONE 0.4 MG/ML VIAL IVP PRN ×2 (22:37→22:38)
[2020-05-06] MEDS ORDERED: LIDOCAINE 2%-EPI 1:100000 20 ML MDV SUBQ ONE ×2 (22:38)
[2020-05-06] MEDS ORDERED: KETOROLAC 30 MG/ML VIAL ONE (23:01)
[2020-05-06] MEDS ORDERED: LACTATED RINGERS 1,000 ML IV SCH (23:45)
[2020-05-06] MEDS ORDERED: LACTATED RINGERS 1,000 ML IV ONE (23:53)
[2020-05-06] MEDS ORDERED: oxyCODONE 5 MG TABLET PO PRN (23:53)
[2020-05-06] MEDS ORDERED: ONDANSETRON ODT 4 MG TABLET TL PRN (23:53)
--- NOTE | 2020-05-07 | ANESTHESIA POST OP EVALUATION ---
Anesthesia Post Eval - Post Anesthesia Eval Vitals: Last Vital Signs Temp 37.1 C 05/06/20 21:15 Pulse 105 H 05/06/20 21:15 Resp 18 05/06/20 21:15 BP 119/72 05/06/20 21:15 Pulse Ox 98 05/06/20 20:49 CV Function Including HR & BP: positive: Stable Pain Control: positive: Satisfactory Nausea & Vomiting: positive: Negative Mental Status: positive: Baseline Respiratory Status: Airway Patent Hydration Status: Satisfactory Anesthesia Complications: positive: None
--- NOTE | 2020-05-07 | OPERATIVE REPORT ---
Operative Report - General Admit Date: 05/06/20 Procedure Date: 05/06/20 Planned Procedure: Repeat low transverse Pre-Op Diagnosis: IUP at 38+6 wga, Hx prior , ruptured membranes Procedure Performed: Repeat low transverse Post Op Diagnosis: same and delivery of term gestation - Procedure Note Primary Surgeon: Erin Shelby MD Secondary Surgeon: TOMASZ Gonzalez CNM Anesthesia Provider: Aiden Newsome CRNA Anesthesia Technique: Spinal Pathology: Placenta for routine discard IV Fluids (mL): 1,200 Estimated Blood Loss (mL): 850 Urine Output (mL): 100 Indications: Patient is a 35 yo at 38+6 wga with history of a prior . Reports that at approximately 19:00, she experienced passage of a large gush of fluid per vagina. She continued to pass large quantities of fluid consistent with spontaneous rupture of membranes. Initial SVE was 3/80/-2 station. She was admitted for repeat low transverse . Findings: Male in vertex presentation, weight and Apgars pending. Normal uterus and tubes, ovaries palpate as normal. Complications: None - Other Other Information/Narrative: Risks benefits and alternatives of the procedure were discussed. Written informed consent was obtained. Patient was taken to the operating room where spinal anesthesia was placed and found to be adequate. She was prepped and draped in the usual sterile fashion in the dorsal supine position with a leftward tilt. Ward catheter was in place. SCDs were in place and activated. Cefazolin 2 g IV was given as a preoperative antibiotic. Preoperative timeout was performed. A total of 20 cc of 2% lidocaine with epinephrine was injected into the suture line prior to making the incision. A Pfannenstiel incision was made in the skin with a scalpel and carried through the underlying layer of fascia in a combination of sharp and blunt dissection. The fascia was incised in the midline, and the incision was extended laterally with the Peralta scissors. The superior aspect of the fascial incision was grasped with the Laura clamps, elevated, and the underlying rectus muscles were dissected off bluntly and sharply using the scalpel. Attention was then turned to the inferior aspect of the incision which in a similar fashion was grasped, tented up with Laura clamps, and the underlying rectus muscles dissected off bluntly and sharply using Peralta scissors. The rectus muscles were then in the midline. The peritoneum was identified, tented up, and entered bluntly. The peritoneal incision was extended superiorly and inferiorly with good visualization of the bladder. The bladder that blade was then inserted. A bladder flap was not created. The lower uterine segment of the uterus was identified, and incised in a transverse fashion with a scalpel. The uterus was entered bluntly. The uterine incision was extended in a craniocaudal fashion by manual stretch. The bladder blade was removed. The was delivered from from vertex position. Baby was wrapped in a warm sterile towel. Delayed cord clamping was performed. After cessation of pulsations, the cord was clamped x2 and cut. The was handed off to the waiting pediatricians. The placenta was removed with manual expression. The uterus was NOT exteriorized. It was cleared of all clots clots and debris via manual swipe using Ray-Samantha x2. The uterine incision was then repaired in a running locked fashion using 0 Vicryl suture. The incisoin was reinforced with a running imbricating layer again using 0-Vicryl suture. Excellent hemostasis was obtained. The gutters were cleared of all clots and debris. The pelvis was irrigated with warm normal saline. The uterine defect was well visualized in normal anatomic position it was noted again to be hemostatic. The peritoneum was then reapproximated with 2-0 Vicryl in a running fashion. The rectus muscles were then reapproximated using interrupted enedmk-ni-aoain sutures using 2-0 Chromic. Good hemostasis was noted. The fascia was then closed using 0 Vicryl in a running fashion starting from the left lateral edge to the midline. A second suture was used to close the fascia in a running fashion starting from the right lateral edge and meeting in the midline, agian using 0-Vicryl. The subcutaneous tissue was then irrigated and closed using 2-0 chromic in a running subcutaneous suture. Skin was closed in a running subcuticular suture using 4-0 Monocryl. Steri-Strips were applied to reinforce the incsion and dressing was applied. Procedure was well-tolerated and without complication. Sponge lap and needle counts were correct x2. Patient was taken to recovery room in stable condition. SAGE Gonzalez, assisted with retraction, delivery of the , and suturing.
[2020-05-07] MEDS ORDERED: SODIUM CHLORIDE FLUSH 0.9% 10 ML SYRINGE IVP SCH ×2 (01:00)
[2020-05-07] MEDS: KETOROLAC 30 MG/ML VIAL IVP SCH ×3 (04:59→16:53)
[2020-05-07 05:58] LABS: BASOPHILS % (AUTO) 0.2 %; HCT - HEMATOCRIT 34.5 % (37.0-47.0); HGB - HEMOGLOBIN 11.8 g/dL (12.0-16.0); LYMPHOCYTES % (AUTO) 7.4 %; MEAN CORPUSCULAR HEMOGLOBIN 32.2 pg (27.0-31.0); MEAN CORPUSCULAR HGB CONC 34.2 g/dL (32.0-36.0); MEAN PLATELET VOLUME 9.2 fL (7.9-10.8); MONOCYTES # (AUTO) 0.4 10^3/uL (0.0-1.0); MONOCYTES % (AUTO) 3.4 %; NEUTROPHILS # (AUTO) 11.4 10^3/uL (1.5-6.6); NEUTROPHILS % (AUTO) 88.3 %; PLT - PLATELET COUNT 171 10^3/uL (130-450); RED BLOOD COUNT 3.67 10^6/uL (4.20-5.40); RED CELL DISTRIBUTION WIDTH 14.9 % (12.0-15.0); WHITE BLOOD COUNT 12.9 x10^3/uL (4.8-10.8)
[2020-05-07] MEDS: ACETAMINOPHEN 500 MG TABLET PO SCH ×3 (07:45→23:45)
[2020-05-07] MEDS: SIMETHICONE CHEW 80 MG TABLET PO PRN ×2 (07:45→15:58)
[2020-05-07] MEDS ORDERED: SERTRALINE 50 MG TABLET PO SCH (09:00)
[2020-05-07] MEDS: DOCUSATE SODIUM 100 MG CAPSULE PO SCH ×2 (09:40→21:39)
[2020-05-07] MEDS ORDERED: LACTATED RINGERS 500 ML IV ONE (15:08)
--- NOTE | 2020-05-07 15:12 | PROVIDER PROGRESS NOTE ---
Subjective - Prog Note Date Prog Note Date: 05/07/20 Prog Note Time: 15:10 - Subjective Subjective: Patient has been up and out of bed once. Tolerating po. Pain well managed. Not having any discomfort. BF going well. Urine output low with less than 50 cc/hr overnight. Urine is dark. Objective - Vital Signs/Intake & Output Reviewed Vital Signs: Yes Vital Signs: Vital Signs x48h Temp Pulse Resp BP Pulse Ox 05/07/20 13:49 99.1 F 104 H 18 103/49 L 98 05/07/20 12:40 98.4 F 99 18 101/61 99 05/07/20 07:45 99.7 F 97 20 107/52 L 96 Intake & Output: Intake & Output 05/04/20 05/05/20 05/06/20 05/07/20 23:59 23:59 23:59 23:59 Intake Total 5580 Output Total 450 Balance 5130 - Objective General Appearance: positive: No acute distress Respiratory: positive: No respiratory distress Cardiovascular: positive: Other (RR) Peripheral Pulses: 2+ Radial (R), 2+ Radial (L) Abdomen: positive: Other (Soft and non-tender. ND. FF below umbi. Dressing CDI) Skin: positive: Color nml, Warm, Dry Extremities: positive: Non-tender Neurologic/Psychiatric: positive: Oriented x3 - Lab Results Fish Bones: 05/07/20 05:50 Other Labs: Lab Results x24hrs 05/07/20 05/06/20 Range/Units 05:50 21:25 WBC 12.9 H (4.8-10.8) x10^3/uL RBC 3.67 L (4.20-5.40) 10^6/uL Hgb 11.8 L (12.0-16.0) g/dL Hct 34.5 L (37.0-47.0) % MCV 94.0 (81.0-99.0) fL MCH 32.2 H (27.0-31.0) pg MCHC 34.2 (32.0-36.0) g/dL RDW 14.9 (12.0-15.0) % Plt Count 171 (130-450) 10^3/uL MPV 9.2 (7.9-10.8) fL Neut # (Auto) 11.4 H (1.5-6.6) 10^3/uL Lymph # (Auto) 1.0 L (1.5-3.5) 10^3/uL Guthrie # (Auto) 0.4 (0.0-1.0) 10^3/uL Eos # (Auto) 0.0 (0.0-0.7) 10^3/uL Baso # (Auto) 0.0 (0.0-0.1) 10^3/uL Absolute Nucleated RBC 0.00 x10^3/uL Nucleated RBC % 0.0 /100WBC Blood Type A POSITIVE Antibody Screen NEGATIVE Crossmatch IS Only See Detail Assessment/Plan - Problem List (1) delivery delivered Impression: POD#1 s/p rLTCS: Overall, patient is doing well. Ward remains in place collecting dark urine with borderline output. -Fluid bolus 500 cc x1, repeat if urine output remains less than 50 cc/hr Encourage ambulation PM delivery, likely to remain inpatient through Saturday Inpatient care
[2020-05-07] MEDS: LACTATED RINGERS 1,000 ML IV SCH (15:24)
[2020-05-07] MEDS: IBUPROFEN 600 MG TABLET PO SCH (22:47)
[2020-05-08] MEDS: IBUPROFEN 600 MG TABLET PO SCH ×3 (05:00→19:18)
[2020-05-08] MEDS: DOCUSATE SODIUM 100 MG CAPSULE PO SCH ×2 (09:21→21:01)
[2020-05-08] MEDS: ACETAMINOPHEN 500 MG TABLET PO SCH ×2 (09:21→19:18)
--- NOTE | 2020-05-08 10:01 | Discharge Plan ---
Discharge Plan Problem Reviewed?: Yes Disposition: Home, Self Care Condition: Good Prescriptions: Acetaminophen [Acetaminophen Extra Strength] 1,000 mg PO Q8H PRN #90 tablet PRN Reason: Pain Docusate Sodium 100Mg Capsule [Colace 100Mg Capsule] 100 - 200 mg PO BID PRN #60 cap PRN Reason: Constipation Ibuprofen [Motrin] 600 mg PO Q6H PRN #90 tab PRN Reason: Pain oxyCODONE [Roxicodone] 2.5 - 5 mg PO Q4H PRN #24 tablet PRN Reason: Severe Pain Diet: Regular Activity Restrictions: Additional Comments (see below) Shower Restrictions: Yes (No tub baths or hot tubs for 4 weeks) Driving Restrictions: Yes (No driving on narcotics) Health Concerns: Nothing in the vagina for 6 weeks: No intercourse, tampons, douching Call for: -Fever greater than 100.5 -Pain that does not improve with pain medication -Heavy bleeding in which you are soaking a pad an hour for 2 hours in a row -Incision becomes hot, hard, red, starts to open, or leaks foul smelling fluid No lifting more than 10# for 4 weeks No [address] while on narcotics Ok to shower. Let water run over the incision. Do not soap, scrub, or apply lotion. Pat dry with a clean towel or maverick a assistant hairstylist. The surgical stickers will start to peel off and you can remove them when they do. Otherwise, the provider will remove them at your one week follow-up appointment. OK to use an unscented sanitary napkin or clean washcloth to keep the incision dry if the belly folds over the incision. Plan of Treatment: Follow up in one week for incision check Additional Instructions or Follow Up instructions: Ibuprofen 600 mg by mouth every 6 hours as needed for pain Acetaminophen 500-1000 mg by mouth every 8 hours as needed for pain Docusate 100-200 mg by mouth twice a day as needed for constipation Oxycodone 5 mg by mouth every 4 hours as needed for pain No Smoking: If you smoke, Please STOP! Call for help. Follow-up with: Pearl Shelby MD [Provider Admit Priv/Credential] -
--- NOTE | 2020-05-08 10:05 | PROVIDER PROGRESS NOTE ---
Subjective - Prog Note Date Prog Note Date: 05/08/20 Prog Note Time: 10:03 - Subjective Subjective: Doing well. Minimal lochia. Pain well managed- limiting oxycodone intake on own volition. Voiding with adequate output. Ambulating. BF going well other than cracked nipples relieved with nipple shield with recent addition of gel pads for discomfort. Tolerating po. Would like pm discharge. Objective - Vital Signs/Intake & Output Reviewed Vital Signs: Yes Vital Signs: Vital Signs x48h Temp Pulse Resp BP Pulse Ox 05/08/20 09:38 97.5 F L 90 18 107/69 98 05/08/20 03:50 97.7 F 87 16 102/67 96 Intake & Output: Intake & Output 05/05/20 05/06/20 05/07/20 05/08/20 23:59 23:59 23:59 23:59 Intake Total 9094.483 750 Output Total 1575 1375 Balance 7519.483 625 - Objective General Appearance: positive: No acute distress Respiratory: positive: No respiratory distress Cardiovascular: positive: Regular rate & rhythm Peripheral Pulses: 2+ Radial (R), 2+ Radial (L), 2+ Dorsalis pedis (R), 2+ Dorsalis pedis (L) Abdomen: positive: Non-tender (Soft and NT/ND. FF below umbi and appropriately tender.), Other Extremities: positive: Non-tender (Mild bilateral tibial edema. NT) Neurologic/Psychiatric: positive: Oriented x3 Comments/Other: Dressing removed. Mild serosang drainage. Incision CDI with steris in place. - Lab Results Fish Bones: 05/07/20 05:50 Assessment/Plan - Problem List (1) delivery delivered Impression: POD#2: Meeting goals for discharge Had late delivery at 22:30, will plan to DC at approximately 22:00 tonight Routine DC instructions given Meds sent to [facility] and patient will have family pick them up prior to DC Will FU n 1 week Routine DC instructions given
--- NOTE | 2020-05-08 10:11 | DISCHARGE SUMMARY ---
"Discharge Summary Admit Date: 05/06/20 Discharge Date: 05/09/20 Discharging Provider: Afsaneh Condition at Discharge: Good Discharge Disposition: 01 Home, Self Care - DIAGNOSES Admission Diagnoses: IUP at 38+6 wga Spontaneous rupture of membranes History of prior Discharge Diagnoses with Status of Each Condition: same and delivery of term gestation - HPI History of Present Illness: Patient is a 35 yo at 38+6 wga with hx of prior who presented with ruptured membranes. Reports passing large gush of fluid at home. Continued to pass fluid at time of arrival. No VB. Endorses FM. Scheduled for and on 05/09/20 am. - CONSULTS | PROCEDURES Procedures: Repeat low transverse - HOSPITAL COURSE Hospital Course: Patient was admitted at 38+6 wga with gross rupture of membranes. She was brought tothe OR for an unscheduled . Procedure was well tolerated and without complication. She delivred a viable male form vertex presentation. Weight 4165 g and Apgars 8/9. Postoperative course was uncomplicated. By POD#2, patient and were meeting goals for discharge. was held for weight check and patient discahrge was held accordingly. Discharge to home on the morning of 07/09/20. Rh positive, Rub immune - ALLERGIES Allergies/Adverse Reactions: Allergies Allergy/AdvReac Type Severity Reaction Status Date / Time amoxicillin Allergy Severe Hives Verified 09/22/15 07:12 - MEDICATIONS Home Medications: Ambulatory Orders Medication Instructions Recorded Confirmed Ibuprofen [Motrin] 800 mg PO Q6HR PRN #30 tablet 09/25/15 oxyCODONE [Roxicodone] 5 mg PO Q6H PRN #30 tablet 09/25/15 Acetaminophen [Acetaminophen Extra 1,000 mg PO Q8H PRN #90 tablet 05/08/20 Strength] Docusate Sodium 100Mg Capsule 100 - 200 mg PO BID PRN #60 cap 05/08/20 [Colace 100Mg Capsule] Ibuprofen [Motrin] 600 mg PO Q6H PRN #90 tab 05/08/20 oxyCODONE [Roxicodone] 2.5 - 5 mg PO Q4H PRN #24 tablet 05/08/20 - PHYSICAL EXAM AT DISCHARGE General Appearance: positive: No acute distress, Alert Respiratory: positive: Chest non-tender, No respiratory distress, Breath sounds nml Cardiovascular: positive: Regular rate & rhythm Peripheral Pulses: positive: 2+ Abdomen: positive: Non-tender, No distention, Other (Incision CDI with steris in place) Skin: positive: Color nml Extremities: positive: Non-tender, No pedal edema (mild, bilateral symmetric), Pedal edema Neurologic/Psychiatric: positive: Oriented x3 - LABS Result Diagrams: 05/07/20 05:50 - FOLLOW UP Follow Up: FU in one week with Dr. Shelby - TIME SPENT Time Spent in Discharge (Minutes): 30"
[2020-05-09] MEDS: IBUPROFEN 600 MG TABLET PO SCH ×2 (01:22→08:00)
[2020-05-09] MEDS: ACETAMINOPHEN 500 MG TABLET PO SCH ×2 (03:50→12:11)
[2020-05-09] MEDS: DOCUSATE SODIUM 100 MG CAPSULE PO SCH (08:00)
[2020-05-09 10:43] VITALS: BP 110/73
== END 2020-05-09 13:30 | disposition home or self-care (01) | DRG 788 ==
LOC: WFO 19:53 → FBP 19:56 → WFO 20:03 → FBP 20:03
PROVIDERS: ADMIT Obstetrics & Gynecology; ATTEND Obstetrics & Gynecology
PROC: 10D00Z1 Extraction of Products of Conception, Low, Open Approach (ICD-10-PCS; principal; 2020-05-06 22:30)
DX: O34.211 Maternal care for low transverse scar from previous cesarean delivery (principal); N85.8 Other specified noninflammatory disorders of uterus; Z3A.38 38 weeks gestation of pregnancy; Z37.0 Single live birth
CPT/HCPCS: 36415; 85025; 86850; 86900; 86901; 86920; A9270; J2274; J7120

== ENCOUNTER 2021-04-19 14:49 | Outpatient (CLI) | payer OTHER, BC ==
--- NOTE | 2021-04-19 20:48 | Ultrasound Report ---
PROCEDURE: OB First Trimester INDICATIONS: SUPERVISION OF NORMAL OUTSIDE/PRIOR DATING DATA: Last menstrual period (LMP): 02/18/2021. LMP-based estimated date of delivery (CLAIRE): 11/25/2021. First dating scan (date and location): 05-09. Estimated date of delivery (CLAIRE) from first dating scan: 11/20/2021. TECHNIQUE: Real-time scanning was performed of the fetus and maternal pelvic organs, with image documentation. COMPARISON: OB ultrasound 04/04/2020 FINDINGS: Embryo: Single live intrauterine gestation is present with crown-rump length measuring 2.5 cm corres ponding to 9 weeks 2 days. There is a small subchorionic hemorrhage measuring 1.6 x 0.5 x 1.5 mm. Heart rate: 173 bpm Measurement variability in dating: +/- 4 weeks by LMP, +/- 7 days by mean sac diameter (use before 6 weeks gestation if crown-rump length not able to be measured), +/- 5 days by crown-rump length (6-12 weeks gestation). Maternal organs: Ovaries demonstrate a right corpus luteal cyst measuring 2.2 x 1.5 x 1.5 cm.. IMPRESSION: Single live intrauterine with ultrasound gestational age of 9 weeks 2 days. Recommend follow-up imaging at 20-22 weeks for dates and anatomy. Reviewed by: Domitila Summers MD on 04/19/2021 8:47 PM PST Approved by: Domitila Summers MD on 04/19/2021 8:47 PM PST Station ID: [id number]
== END 2021-04-19 14:50 | disposition home or self-care (01) ==
LOC: DI 14:49
PROVIDERS: ATTEND Obstetrics & Gynecology
DX: Z34.91 Encounter for supervision of normal pregnancy, unspecified, first trimester (principal)
CPT/HCPCS: 36415; 81003; 85025; 86592; 86762; 86787; 86803; 86850; 86900; 86901; 87086; 87340; 87389

== ENCOUNTER 2021-04-19 15:24 | Outpatient (CLI) | payer OTHER, BC ==
[2021-04-19 15:52] LABS: BASOPHILS # (AUTO) 0.1 10^3/uL (0.0-0.1); BASOPHILS % (AUTO) 0.5 %; EOSINOPHILS # (AUTO) 0.1 10^3/uL (0.0-0.7); EOSINOPHILS % (AUTO) 0.6 %; HCT - HEMATOCRIT 41.5 % (37.0-47.0); HGB - HEMOGLOBIN 14.4 g/dL (12.0-16.0); LYMPHOCYTES # (AUTO) 2.3 10^3/uL (1.5-3.5); LYMPHOCYTES % (AUTO) 20.8 %; MEAN CORPUSCULAR HEMOGLOBIN 31.3 pg (27.0-31.0); MEAN CORPUSCULAR HGB CONC 34.7 g/dL (32.0-36.0); MEAN CORPUSCULAR VOLUME 90.2 fL (81.0-99.0); MEAN PLATELET VOLUME 9.5 fL (7.9-10.8); MONOCYTES # (AUTO) 0.7 10^3/uL (0.0-1.0); MONOCYTES % (AUTO) 6.1 %; NEUTROPHILS # (AUTO) 7.8 10^3/uL (1.5-6.6); NEUTROPHILS % (AUTO) 71.4 %; PLT - PLATELET COUNT 248 10^3/uL (130-450); RED CELL DISTRIBUTION WIDTH 12.9 % (12.0-15.0); WHITE BLOOD COUNT 10.9 x10^3/uL (4.8-10.8)
[2021-04-19 16:19] LABS: BILIRUBIN,URINE NEGATIVE (NEGATIVE); GLUCOSE, URINE (UA) NEGATIVE (NEGATIVE); KETONES,URINE (UA) NEGATIVE (NEGATIVE); LEUKOCYTE ESTERASE, URINE NEGATIVE (NEGATIVE); NITRITE,URINE NEGATIVE (NEGATIVE); OCCULT BLOOD,URINE NEGATIVE (NEGATIVE); PROTEIN,URINE NEGATIVE (NEGATIVE); UROBILINOGEN,URINE 0.2 (NORMAL) E.U./dL (NORMAL)
[2021-04-19 16:20] LABS: CLARITY,URINE CLEAR (CLEAR)
[2021-04-20 10:02] LABS: HEPATITIS B SURFACE ANTIGEN NON-REACTIVE (NON-REACTIVE)
[2021-04-20 12:25] LABS: HEPATITIS C ANTIBODY NON-REACTIVE (NON-REACTIVE)
[2021-04-20 13:20] LABS: HIV AG/AB 4TH GEN NON-REACTIVE (NON-REACTIVE)
== END 2021-04-19 15:25 | disposition home or self-care (01) ==
LOC: LAB 15:24
PROVIDERS: ATTEND Obstetrics & Gynecology
DX: Z34.80 Encounter for supervision of other normal pregnancy, unspecified trimester (principal)
CPT/HCPCS: 36415; 81003; 85025; 86592; 86762; 86787; 86803; 86850; 86900; 86901; 87086; 87340; 87389

== ENCOUNTER 2023-10-29 14:24 | Outpatient (CLI) | payer OTHER, BC ==
[2023-10-29 17:58] LABS: BASOPHILS # (AUTO) 0.1 10^3/uL (0.0-0.1); BASOPHILS % (AUTO) 0.8 %; EOSINOPHILS # (AUTO) 0.1 10^3/uL (0.0-0.7); HCT - HEMATOCRIT 44.4 % (37.0-47.0); HGB - HEMOGLOBIN 14.3 g/dL (12.0-16.0); LYMPHOCYTES % (AUTO) 31.8 %; MEAN CORPUSCULAR HEMOGLOBIN 29.6 pg (27.0-31.0); MEAN CORPUSCULAR HGB CONC 32.2 g/dL (32.0-36.0); MEAN CORPUSCULAR VOLUME 91.9 fL (81.0-99.0); MEAN PLATELET VOLUME 10.4 fL (7.9-10.8); MONOCYTES # (AUTO) 0.4 10^3/uL (0.0-1.0); MONOCYTES % (AUTO) 6.7 %; NEUTROPHILS # (AUTO) 3.7 10^3/uL (1.5-6.6); NEUTROPHILS % (AUTO) 59.5 %; PLT - PLATELET COUNT 228 10^3/uL (130-450); RED BLOOD COUNT 4.83 10^6/uL (4.20-5.40); RED CELL DISTRIBUTION WIDTH 12.3 % (12.0-15.0); WHITE BLOOD COUNT 6.2 x10^3/uL (4.8-10.8)
[2023-10-29 18:17] LABS: THYROID STIMULATING HORMONE 1.66 uIU/mL (0.34-5.60)
[2023-10-29 18:18] LABS: ALBUMIN 4.6 g/dL (3.2-5.5); ALBUMIN/GLOBULIN RATIO 2.2 (1.0-2.2); ALKALINE PHOSPHATASE 39 IU/L (42-121); ALT ALANINE AMINOTRANSFERASE 16 IU/L (10-60); AST ASPARTATE AMINOTRANSFERASE 11 IU/L (10-42); BILIRUBIN,TOTAL 1.3 mg/dL (0.2-1.0); BUN - BLOOD UREA NITROGEN 10 mg/dL (6-20); CALCIUM 9.1 mg/dL (8.5-10.3); CARBON DIOXIDE - CO2 26 mmol/L (21-32); CHLORIDE 104 mmol/L (101-111); CHOL/HDL RATIO 3.9 (<4.4); CHOLESTEROL 179 mg/dL; CREATININE 0.6 mg/dL (0.6-1.3); GFR - MDRD 112 (>89); GLUCOSE 91 mg/dL (74-104); HDL CHOLESTEROL 46 mg/dL; LDL CHOLESTEROL,CALCULATED 114 mg/dL; LDL/HDL RATIO 2.5 (<4.4); POTASSIUM 3.5 mmol/L (3.5-4.5); SODIUM 136 mmol/L (135-145); TOTAL PROTEIN 6.7 g/dL (6.4-8.9); TRIGLYCERIDES 96 mg/dL; VLDL CHOLESTEROL 19 mg/dL
[2023-10-29 22:04] LABS: ESTIMATED AVERAGE GLUCOSE 94 mg/dL (70-100); HEMOGLOBIN A1c% 4.9 % (4.27-6.07)
== END 2023-10-29 14:25 | disposition home or self-care (01) ==
LOC: LAB.N 14:24
DX: Z00.00 Encounter for general adult medical examination without abnormal findings (principal)
CPT/HCPCS: 36415; 80053; 80061; 83036; 83721; 84443; 85025

== ENCOUNTER 2023-10-30 06:57 | Outpatient (CLI) | payer OTHER, BC ==
--- NOTE | 2023-10-30 20:25 | Ultrasound Report ---
PROCEDURE: Abdomen Limited INDICATIONS: UMBILICAL HERNIA TECHNIQUE: Real-time focused scanning was performed of the abdomen, with image documentation. COMPARISONS: None. FINDINGS: Limited ultrasound examination of anterior abdominal wall shows umbilical hernia containing fat only. The opening measures 1.5 x 2.0 cm in size. The hernia is fully reducible. IMPRESSION: Ward reducible fat-containing umbilical hernia as described above. Reviewed by: David Crews MD on 10/30/2023 8:24 PM PDT Approved by: David Crews MD on 10/30/2023 8:24 PM PDT Station ID: [id number]
== END 2023-10-30 06:58 | disposition home or self-care (01) ==
LOC: DI 06:57
DX: K42.9 Umbilical hernia without obstruction or gangrene (principal)